=== PATIENT | female | born 1955 | race Caucasian/White ===

== ENCOUNTER → 2017-04-28 | Outpatient (CLI) | payer OTHER | LOC: BMCIMAGING 12:15 | PROVIDERS: ATTEND Internal Medicine | DX: Z12.31 Encounter for screening mammogram for malignant neoplasm of breast (principal); Z80.3 Family history of malignant neoplasm of breast | CPT/HCPCS: G0202 ==

== ENCOUNTER → 2018-05-04 | Outpatient (CLI) | payer OTHER | DX: Z12.31 Encounter for screening mammogram for malignant neoplasm of breast (principal) ==

== ENCOUNTER → 2018-10-07 | Outpatient (CLI) | payer OTHER | LOC: BMCIMAGING 16:38 | PROVIDERS: ATTEND Internal Medicine Rheumatology | DX: M25.552 Pain in left hip (principal) ==

== ENCOUNTER → 2018-11-02 | Outpatient (CLI) | payer OTHER | LOC: BMCIMAGING 13:25 | PROVIDERS: ATTEND Orthopaedic Surgery | DX: M16.12 Unilateral primary osteoarthritis, left hip (principal) ==

== ENCOUNTER → 2018-12-26 | Outpatient (CLI) | payer OTHER | LOC: FIMAGING 15:15 | PROVIDERS: ATTEND Physician Assistant | DX: M48.07 Spinal stenosis, lumbosacral region (principal); M51.37 Other intervertebral disc degeneration, lumbosacral region; M99.73 Connective tissue and disc stenosis of intervertebral foramina of lumbar region; M51.27 Other intervertebral disc displacement, lumbosacral region; M48.04 Spinal stenosis, thoracic region; M51.24 Other intervertebral disc displacement, thoracic region; M12.88 Other specific arthropathies, not elsewhere classified, other specified site ==